=== PATIENT | male | born 1975 | race Caucasian/White ===

== ENCOUNTER 2019-12-08 09:26 | Emergency (ER) | payer BC, SELFPAY ==
[2019-12-08 09:32] VITALS: BP 168/112; PULSE 95; RESP 16; TEMP 37.1; O2SAT 100; BMI 21.1
--- NOTE | 2019-12-08 09:44 | [facility].EDGENADL ---
ED Disposition Clinical Impression: Gum hemorrhage, Dentalgia, Alcohol use disorder Disposition: Home, Self-Care Condition on Discharge: Good Instructions: DI for Dental Pain, DI for Post-Surgical Bleeding Additional Instructions: You have been evaluated for bleeding after a dental extraction. Please continue to bite down on gauze for the next 20 minutes. Take Tylenol. Avoid aspirin, ibuprofen, anti-inflammatories. Avoid alcohol. Please follow-up with your primary care doctor. Referrals: PCP,No [Primary Care Provider] - Time of Disposition: 11:46 - Critical Care Critical Care Time: No Attestation: On 12/08/19, the high probability of a clinically significant, sudden or life threatening deterioration of the following system(s) required my full and direct attention, intervention and personal management. The time I documented below is in addition to time spent performing reported procedures but includes the following listed in this critical care notation. Medical Decision Making - Medical Records Medical records reviewed: Yes: I reviewed the patient's medical records. - Nicola Inquiry Pt receiving controlled substance: No Vital Signs: 12/08/19 09:32 12/08/19 10:10 12/08/19 10:40 Temperature 98.7 F Temperature Source Oral Pulse Rate [Right Radial] 95 H 94 H 89 Respiratory Rate 16 Blood Pressure [Right Arm] 168/112 H 158/100 H 159/115 H Blood Pressure Mean [Right Arm] 130 119 129 Blood Pressure Source [Right Arm] Automatic Cuff Automatic Cuff Automatic Cuff Blood Pressure Position [Right Arm] Supine Sitting Sitting 02 Sat by Pulse Oximetry 100 100 99 Oxygen Delivery Method Room Air Room Air Room Air Orders (Tests/Meds): ED MEDICATIONS Discontinued Medications Generic Name Dose Route Start Last Admin Trade Name Regi PRN Reason Stop Dose Admin Tranexamic Acid 1,000 mg 12/08/19 09:43 12/08/19 10:51 Tranexamic Acid 1000mg/10ml IV 12/08/19 09:44 Not Given ONCE ONE Tranexamic Acid 1,000 mg 12/08/19 11:00 12/08/19 09:41 Tranexamic Acid 1000mg/10ml TP 12/08/19 11:01 60 mg ONCE ONE Administration Medical Decision Narrative: In summary this is a previously healthy 44-year-old male presenting to the emergency department with bleeding gums after dental extraction. Patient is stable on arrival. He does have clot and active bleeding. Admits to heavy daily alcohol use. Patient instructed to wash out his mouth. Clots removed with 10 cc saline flushes. Patient given TXA soaked gauze to bite down on. On reassessment he continued to have oozing around the site. Patient given a dental sponge to bite down on. After a few minutes the bleeding had controlled. He was instructed that he will need to follow-up with a dentist in the next few days to discuss implants and general dental health. Overall improved and stable for discharge. General Adult HPI - General Stated complaint: pulled tooth that wont quit bleeding Time Seen by Provider: 12/08/19 09:44 Mode of Arrival: Ambulatory Source of Information: Patient Limitations: No Limitations - History of Present Illness HPI narrative: 44-year-old male presenting to the emergency department with bleeding gums. Last night he was eating when he felt 1 of his teeth become very loose. He pulled it out. Since then he has had significant bleeding and clotting from his upper gums. Nothing like this is ever happened before. No history of bleeding disorder. Does not take blood thinners. Has not tried any medications or techniques at home to stop the bleeding. Feels like he may be swallowing some blood. No headache, vision changes, weakness, cough, shortness of breath, other concerns. - Related Data Allergies Allergy/AdvReac Type Severity Reaction Status Date / Time No Known Allergies Allergy Verified 12/08/19 09:55 [facility] History - Hepatitis A Screen Attestation statement:: This patient has been screened for Hepatitis
--- NOTE | 2019-12-08 10:09 | PC.NURSE ---
lt upper mouth irrigated with approx 80cc sterile water, packed with cottonball soaked in TXA and 4x4s and told to bite down
[2019-12-08 10:10] VITALS: BP 158/100; PULSE 94; O2SAT 100
--- NOTE | 2019-12-08 10:22 | PC.NURSE ---
TXA packing removed. area continues to bleed. new cotton ball soaked in TXA applied to area with 4x4s and instructed to bite down. MD hernandez
[2019-12-08 10:40] VITALS: BP 159/115; PULSE 89; O2SAT 99
[2019-12-08 11:52] VITALS: BP 159/115; PULSE 87; RESP 16; TEMP 36.6; O2SAT 98
== END 2019-12-08 11:53 | disposition home or self-care (01) ==
PROVIDERS: Emergency Provider Emergency Medicine
DX: K06.8 Other specified disorders of gingiva and edentulous alveolar ridge (principal); K00.6 Disturbances in tooth eruption; F10.10 Alcohol abuse, uncomplicated
CPT/HCPCS: 99282